=== PATIENT | male | born 1995 ===

== ENCOUNTER 2017-01-03 14:22 | Emergency (ER) | payer OTHER ==
[2017-01-03 14:38] VITALS: BP 122/74
[2017-01-03] MEDS ORDERED: Lidocaine 2% VISCOUS* 15 ML UDC PO ONE (15:06)
[2017-01-03] MEDS ORDERED: Al Hydrox/Mg Hydrox/Simet LIQ* 30 ML UDC PO ONE (15:07)
--- NOTE | 2017-01-03 15:13 | UC ---
Cardiac HPI - HPI Summary HPI Summary: 21 yo male with the onset of chest pressure about 10:30 AM pain is mild worsens when he swallow no n/v no SOB on the PM of 01/01 he got drunk and vomited no blood in vomit no change in bowel habits no abd pain no F/C or URI symptoms - History of Current Complaint Chief Complaint: UCChestPain Stated Complaint: CHEST PAIN Time Seen by Provider: 01/03/17 14:55 Hx Obtained From: Patient Onset/Duration: Sudden Onset, Lasting Hours Timing: Constant Initial Severity: Mild Current Severity: Mild Pain Intensity: 2 Chest Pain Location: Mid Sternal Character: Pressure/Squeezing Aggravating: Nothing - swallowing food or liquid Alleviating: Nothing Associated Signs & Symptoms: Positive: Chest Pain - Allergy/Home Medications Allergies/Adverse Reactions: Allergies Allergy/AdvReac Type Severity Reaction Status Date / Time No Known Allergies Allergy Verified 01/03/17 14:38 Home Medications: Home Medications Adderall Ir 20 mg PO DAILY 01/03/17 [History Confirmed 01/03/17] Amphetamine/Dextroamph ER(NF) [Adderal XR (NF)] 20 mg PO DAILY 01/03/17 [ History Confirmed 01/03/17] PMH/Surg Hx/FS Hx/Imm Hx Previously Healthy: Yes - Surgical History Surgical History: None - Family History Known Family History: Negative: Cardiac Disease, Hypertension, Renal Disease - Social History Alcohol Use: Occasionally Substance Use Type: Marijuana Substance Use Comment - Amount & Last Used: yesterday Smoking Status (MU): Former Smoker Review of Systems Constitutional: Negative Skin: Negative Eyes: Negative ENT: Negative Respiratory: Negative Cardiovascular: Chest Pain Gastrointestinal: Negative Genitourinary: Negative Motor: Negative Neurovascular: Negative Musculoskeletal: Negative Neurological: Negative Psychological: Negative All Other Systems Reviewed And Are Negative: Yes Physical Exam Triage Information Reviewed: Yes Appearance: Well-Appearing, No Pain Distress, Well-Nourished, Thin Vital Signs: Initial Vital Signs Temp 98.2 F 01/03/17 14:27 Pulse 60 01/03/17 14:27 Resp 18 01/03/17 14:27 BP 122/74 01/03/17 14:27 Pulse Ox 100 01/03/17 14:27 Vital Signs Reviewed: Yes Eyes: Positive: Conjunctiva Clear ENT: Positive: Hearing grossly normal, Pharynx normal, TMs normal. Negative: Tonsillar swelling, Trismus, Muffled/hoarse voice Neck: Positive: Supple, Nontender Respiratory: Positive: Chest non-tender, Lungs clear, Normal breath sounds, No respiratory distress, No accessory muscle use Cardiovascular: Positive: RRR, No Murmur, Pulses Normal Abdomen Description: Positive: Nontender, No Organomegaly, Soft. Negative: CVA Tenderness (R), CVA Tenderness (L) Musculoskeletal: Positive: ROM Intact, No Edema Neurological: Positive: Alert, Muscle Tone Normal Psychological Exam: Normal Skin Exam: Normal Re-Evaluation - Re-Evaluation First Eval Re-Evaluation Time: 15:51 Change: Unchanged - Clinical Impression Provider Diagnoses: esophagitis/esophageal spasm Discharge - Discharge Plan Condition: Stable Disposition: HOME Prescriptions: Omeprazole CAP* [Prilosec CAP* 20 MG] 20 mg PO BEDTIME #14 cap. Patient Education Materials: Esophagitis (ED) Referrals: Non Staff,Doctor [Primary Care Provider] - Additional Instructions: mylanta 2 tablespoons (30ml) every 2 hours while awake for 2-3 days don't take at the same time as the omeprazole avoid aspirin/aleve/advil and alcohol recheck for new symptoms recheck in 3-4 days if not better
== END 2017-01-03 16:02 | disposition home or self-care (01) ==
LOC: UCCORT 14:22
DX: K20.9 Esophagitis, unspecified (principal); K22.4 Dyskinesia of esophagus; F12.90 Cannabis use, unspecified, uncomplicated; Z87.891 Personal history of nicotine dependence
CPT/HCPCS: 99202; A9270-GY; G0463